=== PATIENT | male | born 1940 ===

== ENCOUNTER 2019-03-23 10:09 | Emergency (ER) | payer MEDICARE, OTHER ==
[~2019-03-23] VITALS: Ht 167.6 cm; Wt 91.4 kg
[2019-03-23 10:13] VITALS: BP 172/76
[2019-03-23] MEDS ORDERED: proparacaine 0.5% ophthalmic drops 15ml EACHEYE ONE (10:40)
== END 2019-03-23 11:20 | disposition home or self-care (01) ==
LOC: ER 10:10
DX: H43.11 Vitreous hemorrhage, right eye (principal); I10 Essential (primary) hypertension; F17.200 Nicotine dependence, unspecified, uncomplicated; Z98.890 Other specified postprocedural states
CPT/HCPCS: 99283; 99284